=== PATIENT | female | born 1940 | race Caucasian/White ===

== ENCOUNTER 2018-05-15 09:01 | Emergency (ER) | payer OTHER ==
[~2018-05-15] VITALS: Ht 157.5 cm; Wt 61.2 kg
[~2018-05-15 09:01] MED LIST: COUMADIN1 MG PO; INTESTINEX1 CAP PO; LIBRAX CAPSULE1 CA1; LOPRESSOR25 MG PO; OMEPRAZOLE20 MG PO; PROTONIX40 MG PO; PYRIDIUM100 MG PO; SEPTRA DS TABLE1 TAB PO; ZANTAC15 MG/ML PO
== END 2018-05-15 16:47 | disposition home or self-care (01) ==
LOC: ER 09:01
DX: M54.89 Other dorsalgia (principal)

== ENCOUNTER 2018-06-04 09:49 | Emergency (ER) | payer OTHER ==
[~2018-06-04] VITALS: Ht 160 cm; Wt 63.5 kg
[2018-06-04] MEDS ORDERED: TEMAZEPAM7.5 MG (10:22)
== END 2018-06-04 12:37 | disposition home or self-care (01) ==
LOC: ER 09:49
DX: M79.641 Pain in right hand (principal)

== ENCOUNTER 2020-08-31 12:41 | Emergency (ER) | payer OTHER ==
[~2020-08-31] VITALS: Ht 160 cm; Wt 63.5 kg
[~2020-08-31 12:41] MED LIST changes: +TEMAZEPAM7.5 MG
[2020-08-31] MEDS ORDERED: ZOFRAN8 MG PO (16:40)
[2020-08-31] MEDS ORDERED: FLAGYL500MG PO (16:40)
[2020-08-31] MEDS ORDERED: PEPCID AC20 MG PO (16:40)
== END 2020-08-31 23:00 | disposition home or self-care (01) ==
LOC: ER 12:41
DX: K52.89 Other specified noninfective gastroenteritis and colitis (principal); E86.0 Dehydration; S00.83XA Contusion of other part of head, initial encounter; W20.8XXA Other cause of strike by thrown, projected or falling object, initial encounter; Y93.89 Activity, other specified; Y92.89 Other specified places as the place of occurrence of the external cause; Y99.8 Other external cause status

== ENCOUNTER 2020-12-26 14:29 | Emergency (ER) | payer OTHER ==
[~2020-12-26] VITALS: Ht 157.5 cm; Wt 59.0 kg
[~2020-12-26 14:29] MED LIST changes: +FLAGYL500MG PO; +PEPCID AC20 MG PO; +ZOFRAN8 MG PO
[2020-12-26] MEDS ORDERED: ELIQUIS5 MG (14:38)
[2020-12-26] MEDS ORDERED: LEVSIN0.125 MG (14:39)
[2020-12-26] MEDS ORDERED: DIALYVITE 8001 EACH (14:39)
[2020-12-26] MEDS ORDERED: VIT D3 (14:39)
[2020-12-26] MEDS ORDERED: LORAZEPAM0.5 MG (14:39)
[2020-12-26] MEDS ORDERED: LIPITOR20 MG (14:40)
[2020-12-26] MEDS ORDERED: ARICEPT5 MG (14:40)
[2020-12-26] MEDS ORDERED: SERTRALINE HCL25 MG (14:40)
== END 2020-12-26 20:57 | disposition home or self-care (01) ==
LOC: ER 14:29
DX: K52.89 Other specified noninfective gastroenteritis and colitis (principal); R10.13 Epigastric pain

== ENCOUNTER 2021-02-11 13:40 | Emergency (ER) | payer OTHER ==
[~2021-02-11] VITALS: Ht 157.5 cm; Wt 54.4 kg
[~2021-02-11 13:40] MED LIST changes: +ARICEPT5 MG; +DIALYVITE 8001 EACH; +ELIQUIS5 MG; +LEVSIN0.125 MG; +LIPITOR20 MG; +LORAZEPAM0.5 MG; +SERTRALINE HCL25 MG; +VIT D3
[2021-02-11] MEDS ORDERED: INTESTINEX680 M1 PO (17:22)
== END 2021-02-11 17:34 | disposition home or self-care (01) ==
LOC: ER 13:40
DX: K52.89 Other specified noninfective gastroenteritis and colitis (principal); R11.2 Nausea with vomiting, unspecified

== ENCOUNTER → 2021-07-17 | Emergency (ER) | payer OTHER ==
[~2021-07-17] VITALS: Ht 165.1 cm; Wt 61.2 kg
[~2021-07-17] MED LIST changes: +INTESTINEX680 M1 PO
== END | disposition left against medical advice (07) ==
LOC: ER 10:10
DX: Z53.20 Procedure and treatment not carried out because of patient's decision for unspecified reasons (principal)

== ENCOUNTER 2023-06-07 08:55 | Emergency (ER) | payer OTHER ==
[~2023-06-07] VITALS: Ht 160 cm; Wt 63.5 kg
[2023-06-07] MEDS ORDERED: NAMENDA10 MG (09:17)
[2023-06-07] MEDS ORDERED: OMEPRAZOLE20 MG (09:17)
== END 2023-06-07 13:00 | disposition home or self-care (01) ==
LOC: ER 08:55
PROVIDERS: General Practice
DX: R07.9 Chest pain, unspecified (principal); Z91.041 Radiographic dye allergy status; I10 Essential (primary) hypertension; I25.118 Atherosclerotic heart disease of native coronary artery with other forms of angina pectoris; E78.49 Other hyperlipidemia; I48.91 Unspecified atrial fibrillation; E78.00 Pure hypercholesterolemia, unspecified; R55 Syncope and collapse
CPT/HCPCS: 36415; 93005; 96365; 99284; J3490

== ENCOUNTER 2025-01-01 21:21 | Emergency (ER) | payer OTHER ==
[~2025-01-01] VITALS: Ht 162.6 cm; Wt 63.5 kg
[~2025-01-01 21:21] MED LIST changes: +NAMENDA10 MG; +OMEPRAZOLE20 MG
[2025-01-01 23:26] LABS: PH,URINE 5.5 (5.0-8.0); URINE APPEARANCE Clear; URINE BILIRRUBIN Negative (NEGATIVE); URINE BLOOD Negative; URINE COLOR Yellow; URINE GLUCOSE Negative (NEGATIVE); URINE KETONE Trace (NEGATIVE); URINE LEUKOCYTE Small; URINE NITRATE Negative; URINE PROTEIN Trace (NEGATIVE); URINE UROBILINOGEN 0.2 E.U./dl
[2025-01-01 23:30] LABS: HEMATOCRIT 42.6 % (36.0-45.00); HEMOGLOBIN 14.3 g/dL (12.0-15.00); MEAN CELL VOLUME 89.9 fL (80.00-100.00); MEAN CORPUSCULAR HEMOGLOBIN 30.1 pg (27.00-32.0); MEAN CORPUSCULAR HGB CONC 33.5 g/dl (32.0-36.0); PLATELET COUNT 326 K/uL (150-450); RED BLOOD COUNT 4.74 M/uL (4.00-6.00); URINE BACTERIA 138.2 uL (0.0-1933); URINE EPITHELIAL CELLS 16.9 uL (0.0-38.8); URINE RBC 13.2 uL (0.0-20.8); URINE WBC 179.6 uL (0.0-23.2)
[2025-01-01 23:35] LABS: CALCIUM 9.5 mg/dL (8.5-10.1); CREATININE SERUM 1.09 mg/dL (0.55-1.02); GFR 47.71; POTASSIUM 4.01 mEq/L (3.5-5.1)
[2025-01-01 23:45] LABS: URINE CRYSTALS MANY /HPF
[2025-01-02] MEDS ORDERED: CEFTRIAXONE SODIUM 1,000 MG VIAL ONE (02:43)
[2025-01-02 07:44] VITALS: BP 167/85; O2SAT 99
[2025-01-02] MEDS ORDERED: BUDESONIDE 0.25 MG/2 ML AMPUL.NEB IH ONE (09:06)
[2025-01-02] MEDS ORDERED: ALBUTEROL SULFATE 1.25 MG/3 ML AMPUL.NEB IH ONE (09:06)
[2025-01-02] MEDS ORDERED: LIDOCAINE HCL 1% 10ML VIAL ONE (12:47)
[2025-01-02] MEDS ORDERED: BACITRACIN-NEOMYCIN-POLYMYXIN 0.9 GM PACKET TOP ONE (12:59)
== END 2025-01-02 12:42 | disposition home or self-care (01) ==
LOC: ER 21:24
PROVIDERS: General Practice
DX: E86.0 Dehydration (principal); N39.0 Urinary tract infection, site not specified; Z88.8 Allergy status to other drugs, medicaments and biological substances

== ENCOUNTER 2025-01-06 09:53 | Emergency (ER) | payer OTHER ==
[~2025-01-06] VITALS: Ht 160 cm; Wt 59.0 kg
[2025-01-06] MEDS ORDERED: 0.9 % SODIUM CHLORIDE 1,000 ML IV STA (11:25)
[2025-01-06 12:37] LABS: HEMATOCRIT 44.1 % (36.0-45.00); HEMOGLOBIN 14.6 g/dL (12.0-15.00); MEAN CELL VOLUME 90.4 fL (80.00-100.00); MEAN CORPUSCULAR HEMOGLOBIN 29.9 pg (27.00-32.0); MEAN CORPUSCULAR HGB CONC 33.1 g/dl (32.0-36.0); PLATELET COUNT 345 K/uL (150-450); RED BLOOD COUNT 4.88 M/uL (4.00-6.00); RED CELL DISTRIBUTION WIDTH 14.8 % (11.5-14.5)
[2025-01-06 12:53] LABS: INR 1.13; PARTIAL THROMBOPLASTIN TIME 29.3 SECONDS (22.0-34.0); PROTHROMBIN TIME 12.2 SECONDS (9.0-11.5)
[2025-01-06 13:05] LABS: URINE APPEARANCE Clear; URINE BILIRRUBIN Negative (NEGATIVE); URINE BLOOD Trace; URINE COLOR Yellow; URINE GLUCOSE Negative (NEGATIVE); URINE KETONE Trace (NEGATIVE); URINE LEUKOCYTE Trace; URINE NITRATE Negative; URINE PROTEIN Negative (NEGATIVE); URINE UROBILINOGEN 0.2 E.U./dl
[2025-01-06 13:08] LABS: ALBUMIN 3.7 gm/dL (3.4-5.0); BILIRUBIN TOTAL 0.62 mg/dL (0.3-1.2); CALCIUM 9.7 mg/dL (8.5-10.1); CREATININE SERUM 0.99 mg/dL (0.55-1.02); GFR 53.31; GLOBULINA 3.9 G/DL (2.4-3.5); POTASSIUM 3.96 mEq/L (3.5-5.1); TOTAL PROTEIN 7.6 gm/dL (6.4-8.2); TSH 2.09 uIU/mL (0.358-3.74)
[2025-01-06 13:08] LABS: URINE BACTERIA 35.4 uL (0.0-1933); URINE EPITHELIAL CELLS 13.6 uL (0.0-38.8); URINE RBC 31.6 uL (0.0-20.8)
== END 2025-01-06 19:14 | disposition home or self-care (01) ==
LOC: ER 09:54
PROVIDERS: General Practice
DX: E86.0 Dehydration (principal); G30.8 Other Alzheimer's disease; F02.80 Dementia in other diseases classified elsewhere, unspecified severity, without behavioral disturbance, psychotic disturbance, mood disturbance, and anxiety; I10 Essential (primary) hypertension; Z88.8 Allergy status to other drugs, medicaments and biological substances; Z20.822 Contact with and (suspected) exposure to COVID-19

== ENCOUNTER 2025-08-09 10:43 | Emergency (ER) | payer OTHER ==
[~2025-08-09] VITALS: Ht 165.1 cm; Wt 65.8 kg
[2025-08-09] MEDS ORDERED: 0.9 % SODIUM CHLORIDE 1,000 ML IV SCH (12:00)
[2025-08-09] MEDS ORDERED: ONDANSETRON HCL 2 MG/ML VIAL IV ONE (12:00)
[2025-08-09] MEDS ORDERED: ONDANSETRON HCL 2 MG/ML VIAL ONE (12:37)
[2025-08-09 13:19] LABS: BASO % 0.3 % (0.1-1.2); EOS # 0.06 (0.04-0.54); EOS % 0.6 % (0.7-7.0); LYMPH # 1.60 (1.18-3.74); LYMPH % 15.9 % (19.3-53.1); MEAN PLATELET VOLUME 10.30 fl (9.4-12.4); MONO # 0.78 (0.24-0.82); MONO % 7.7 % (4.7-12.5); NEUT # 7.59 (1.56-6.13); NEUT % 75.2 % (34.0-71.1)
[2025-08-09 13:20] LABS: ERYTHROCYTE SEDIMENTATION RATE 38 mm/hr (0-30)
[2025-08-09 13:21] LABS: RED CELL DISTRIBUTION WIDTH 26.5 % (11.6-14.4)
[2025-08-09 13:40] LABS: ALT/SGPT 25.0 U/L (12-78); AST/SGOT 80.0 U/L (15-37); BILIRUBIN TOTAL 0.48 mg/dL (0.3-1.2); BUN CREA RATIO 18.0 (7.0-25.0); CREATININE SERUM 1.15 mg/dL (0.55-1.02); GFR 44.74; GLOBULINA 4.0 G/DL (2.4-3.5); GLUCOSE FASTING 109.0 mg/dL (65-100); OSMOLALITY SERUM 289.0 MOSM/KG (275-295)
[2025-08-09 14:22] LABS: URINE APPEARANCE Cloudy; URINE BILIRRUBIN Small (NEGATIVE); URINE BLOOD Negative; URINE COLOR Dark Yellow; URINE GLUCOSE Negative (NEGATIVE); URINE KETONE 15 (NEGATIVE); URINE LEUKOCYTE Small; URINE NITRATE Negative; URINE PROTEIN 30 (NEGATIVE); URINE UROBILINOGEN 1.0 E.U./dl
[2025-08-09 14:26] LABS: URINE BACTERIA 195.5 uL (0.0-1933); URINE EPITHELIAL CELLS 38.4 uL (0.0-38.8); URINE RBC 47.8 uL (0.0-20.8); URINE WBC 113.5 uL (0.0-23.2)
[2025-08-09 14:46] LABS: COVID-19 AG NEGATIVE (NEGATIVE)
[2025-08-09 14:46] LABS: TYPE CELLS SQUAMOUS; URINE CAST 0.87 uL (0.0-1.40); URINE CRYSTALS FEW /HPF; URINE MUCUS MODERATE
== END 2025-08-10 01:07 | disposition home or self-care (01) ==
LOC: ER 10:43
PROVIDERS: General Practice
DX: N39.0 Urinary tract infection, site not specified (principal); I25.10 Atherosclerotic heart disease of native coronary artery without angina pectoris; E86.0 Dehydration; I49.8 Other specified cardiac arrhythmias; E78.00 Pure hypercholesterolemia, unspecified; I48.91 Unspecified atrial fibrillation; G30.8 Other Alzheimer's disease; F02.80 Dementia in other diseases classified elsewhere, unspecified severity, without behavioral disturbance, psychotic disturbance, mood disturbance, and anxiety; D53.8 Other specified nutritional anemias; Z91.041 Radiographic dye allergy status; Z20.822 Contact with and (suspected) exposure to COVID-19
CPT/HCPCS: 36415; 71045; 76700; 82803; 93005; 96365; 99284; J2405; J7030

== ENCOUNTER 2025-08-22 08:48 | Outpatient (CLI) | payer OTHER | END 2025-08-22 08:52 | disposition home or self-care (01) | LOC: TOM 08:48 | DX: R10.13 Epigastric pain (principal) | CPT/HCPCS: 74178; Q9965 ==

== ENCOUNTER 2025-08-27 10:28 | Inpatient (IN) | payer OTHER ==
[~2025-08-27] VITALS: Ht 157.5 cm; Wt 68.0 kg
[2025-08-27] MEDS ORDERED: RAZADYNE ER16 MG PO (11:20)
[2025-08-27] MEDS ORDERED: ATORVASTATIN CA10 MG PO (11:20)
[2025-08-27] MEDS ORDERED: ZYPREXA20 MG PO (11:21)
--- NOTE | 2025-08-27 11:28 | NUR ---
PACIENTE FEMINA ACOMPANADA POR DIAZ NIETA, SE REFIERE VOMITOS, SE LE GIOVANNI SIGNOS VITALES Y SE UBICA PARA SER EVALUADA.
[2025-08-27] MEDS ORDERED: 0.9 % SODIUM CHLORIDE 1,000 ML IV STA (12:24)
[2025-08-27] MEDS ORDERED: DEXTROSE 50 % IN WATER 0.5 G/ML DISP.SYRIN IV ONE (12:52)
[2025-08-27 12:56] LABS: BASO % 0.2 % (0.1-1.2); EOS # 0.01 (0.04-0.54); EOS % 0.1 % (0.7-7.0); LYMPH # 1.14 (1.18-3.74); LYMPH % 9.5 % (19.3-53.1); MEAN PLATELET VOLUME 9.70 fl (9.4-12.4); MONO # 1.02 (0.24-0.82); MONO % 8.5 % (4.7-12.5); NEUT # 9.73 (1.56-6.13); NEUT % 81.1 % (34.0-71.1)
--- NOTE | 2025-08-27 13:27 | NUR ---
PTE ALERTA,ESTABLE Y ORIENTADA.SE EDUCA SOBRE EL TRATAMIENTO QUE RECIBIRA EN EL HOSPITAL Y ESTA REFIERE ENTENDER
[2025-08-27 13:30] LABS: RED CELL DISTRIBUTION WIDTH 25.9 % (11.6-14.4)
[2025-08-27 13:31] LABS: INR 1.23
[2025-08-27 13:39] LABS: ALT/SGPT 45.0 U/L (12-78); AST/SGOT 111.0 U/L (15-37); BILIRUBIN TOTAL 0.81 mg/dL (0.3-1.2); BUN CREA RATIO 15.0 (7.0-25.0); CREATININE SERUM 1.19 mg/dL (0.55-1.02); GFR 43.01; GLOBULINA 3.6 G/DL (2.4-3.5); GLUCOSE FASTING 98.0 mg/dL (65-100); OSMOLALITY SERUM 283.0 MOSM/KG (275-295)
[2025-08-27 14:47] LABS: URINE APPEARANCE Cloudy; URINE BILIRRUBIN Small (NEGATIVE); URINE BLOOD Negative; URINE COLOR Dark Yellow; URINE GLUCOSE Negative (NEGATIVE); URINE KETONE Trace (NEGATIVE); URINE LEUKOCYTE Small; URINE NITRATE Negative; URINE UROBILINOGEN 1.0 E.U./dl
[2025-08-27 14:50] LABS: URINE BACTERIA 213.5 uL (0.0-1933); URINE EPITHELIAL CELLS 72.6 uL (0.0-38.8); URINE RBC 35.3 uL (0.0-20.8); URINE WBC 179.3 uL (0.0-23.2)
[2025-08-27 15:21] LABS: URINE CAST > 21.83 uL (0.0-1.40); URINE PROTEIN 300 (NEGATIVE)
[2025-08-27] MEDS ORDERED: SODIUM CHLORIDE 0.45 % 1,000 ML IV SCH (18:00)
[2025-08-27] MEDS ORDERED: PIPERACILLIN/TAZOBACTAM SODIUM 2.25 GM in DEXTROSE 5 % IN WATER 50 ML IV SCH (18:47)
[2025-08-27] MEDS ORDERED: FAMOTIDINE/PF 20 MG/2 ML VIAL IV SCH (18:47)
[2025-08-27] MEDS ORDERED: CLOTRIMAZOLE 30 GM TUBE TOP SCH (18:50)
[2025-08-27] MEDS ORDERED: LORazepam 2 MG/ML VIAL IV ONE (19:00)
[2025-08-27] MEDS ORDERED: TEMAZEPAM 15 MG CAPSULE PO PRN (19:15)
[2025-08-27] MEDS ORDERED: ENOXAPARIN SODIUM 40 MG/0.4 ML SYRINGE SUBCUTANEO SCH (19:49)
[2025-08-27 19:52] VITALS: BP 110/70
[2025-08-27] MEDS ORDERED: FAMOTIDINE/PF 20 MG/2 ML VIAL ONE (19:54)
[2025-08-27] MEDS ORDERED: LORazepam 2 MG/ML VIAL ONE (19:54)
[2025-08-27] MEDS ORDERED: BENZONATATE 100 MG CAPSULE PO ONE (21:52)
[2025-08-28] VITALS (8 sets, daily range): BP systolic 113–124; BP diastolic 68–81; O2SAT 87–98
[2025-08-28] MEDS ORDERED: ONDANSETRON HCL 4 MG in DEXTROSE 5 % IN WATER 50 ML IV SCH (01:00)
[2025-08-28] MEDS ORDERED: AMINO ACIDS/PROTEIN HYDROLYS 30 ML BLIST.PACK PO SCH (09:00)
[2025-08-28] MEDS ORDERED: LACTOBACILLUS ACIDOPHILUS 1 CAP CAP PO SCH (09:00)
[2025-08-29] VITALS: BP 118/75; O2SAT 97
[2025-08-29 07:22] LABS: URINE PROT QUANT 24HR 24.1 MG/DL
[2025-08-29 07:24] LABS: URINE PROT QUANT 24 HR 120.5 MG/24HR (42-225)
[2025-08-29 08:00] VITALS: BP 110/75; O2SAT 97
[2025-08-29] MEDS ORDERED: FERROUS SULFATE 325 MG TABLET.EC PO SCH (09:00)
[2025-08-29] MEDS ORDERED: FAMOTIDINE/PF 20 MG/2 ML VIAL IV SCH (09:00)
[2025-08-29] MEDS ORDERED: VITAMIN B COMPLEX/LYSINE 15 ML BLIST.PACK PO SCH (09:00)
[2025-08-29 10:45] LABS: CREATINE CLEARANCE 15.2 ML/MIN (97-137); CREATININE SERUM 1.1 mg/dL (0.6-1.0)
[2025-08-29 13:28] VITALS: O2SAT 96
[2025-08-29 16:21] VITALS: BP 149/80; O2SAT 99
[2025-08-29] MEDS ORDERED: MULTIVIT INFUSN,ADULT 4,VIT K 10 ML VIAL IV SCH (17:00)
[2025-08-30] VITALS: O2SAT 95
[2025-08-30 00:49] VITALS: BP 128/81; O2SAT 98
[2025-08-30 07:58] LABS: ALT/SGPT 44.0 U/L (12-78); AST/SGOT 115.0 U/L (15-37); BILIRUBIN TOTAL 1.0 mg/dL (0.3-1.2); BUN CREA RATIO 16.0 (7.0-25.0); CREATININE SERUM 1.02 mg/dL (0.55-1.02); GFR 51.38; GLOBULINA 2.8 G/DL (2.4-3.5); GLUCOSE FASTING 86.0 mg/dL (65-100); OSMOLALITY SERUM 285.0 MOSM/KG (275-295)
[2025-08-30 08:35] LABS: BASO % 0.3 % (0.1-1.2); EOS # 0.06 (0.04-0.54); EOS % 0.7 % (0.7-7.0); LYMPH # 1.25 (1.18-3.74); LYMPH % 14.2 % (19.3-53.1); MEAN PLATELET VOLUME 10.40 fl (9.4-12.4); MONO # 0.95 (0.24-0.82); MONO % 10.8 % (4.7-12.5); NEUT # 6.47 (1.56-6.13); NEUT % 73.4 % (34.0-71.1)
[2025-08-30 08:55] VITALS: BP 134/85; O2SAT 99
[2025-08-30 10:34] LABS: RED CELL DISTRIBUTION WIDTH 26.1 % (11.6-14.4)
[2025-08-30 17:16] VITALS: BP 172/81; O2SAT 97
[2025-08-30 23:55] VITALS: BP 140/85; O2SAT 97
[2025-08-31 09:10] VITALS: BP 172/80; O2SAT 99
[2025-08-31 16:54] VITALS: BP 121/73; O2SAT 95
[2025-09-01 00:42] VITALS: BP 129/79; O2SAT 98
[2025-09-01 08:00] VITALS: BP 137/76; O2SAT 98
[2025-09-01] MEDS ORDERED: DIPHENHYDRAMINE HCL 50 MG/ML VIAL 1ML IV NR (08:00)
[2025-09-01] MEDS ORDERED: METHYLPREDNISOLONE SOD SUCC 125 MG VIAL IV NR (08:00)
[2025-09-01 09:26] VITALS: O2SAT 94
[2025-09-01 16:22] VITALS: O2SAT 97
[2025-09-01 16:43] VITALS: BP 120/76; O2SAT 94
[2025-09-01 20:06] VITALS: O2SAT 92
[2025-09-02] VITALS (7 sets, daily range): BP systolic 131–156; BP diastolic 70–84; O2SAT 87–99
[2025-09-02 06:37] LABS: ALT/SGPT 40.0 U/L (12-78); AST/SGOT 102.0 U/L (15-37); BILIRUBIN TOTAL 0.52 mg/dL (0.3-1.2); BUN CREA RATIO 14.0 (7.0-25.0); CREATININE SERUM 0.81 mg/dL (0.55-1.02); GFR 67.04; GLOBULINA 2.8 G/DL (2.4-3.5); GLUCOSE FASTING 83.0 mg/dL (65-100); OSMOLALITY SERUM 282.0 MOSM/KG (275-295)
[2025-09-02] MEDS ORDERED: AZITHROMYCIN 500 MG TABLET PO SCH (20:59)
[2025-09-02] MEDS ORDERED: GUAIFENESIN 200 MG/10 ML BLIST.PACK PO SCH (21:00)
[2025-09-03] VITALS (8 sets, daily range): BP systolic 134–151; BP diastolic 74–80; O2SAT 93–98
[2025-09-03 06:19] LABS: BASO % 0.1 % (0.1-1.2); EOS # 0.04 (0.04-0.54); EOS % 0.4 % (0.7-7.0); LYMPH # 1.79 (1.18-3.74); LYMPH % 18.3 % (19.3-53.1); MEAN PLATELET VOLUME 10.20 fl (9.4-12.4); MONO # 0.71 (0.24-0.82); MONO % 7.3 % (4.7-12.5); NEUT # 7.18 (1.56-6.13); NEUT % 73.5 % (34.0-71.1)
[2025-09-03 06:57] LABS: RED CELL DISTRIBUTION WIDTH 26.5 % (11.6-14.4)
[2025-09-03] MEDS ORDERED: ZITHROMAX500 MG PO (14:32)
[2025-09-03] MEDS ORDERED: INFUVITE ADULT10 ML IV (14:32)
[2025-09-03] MEDS ORDERED: INTESTINEX680 M1 PO (14:32)
[2025-09-03] MEDS ORDERED: GERI-TUSSI100 MG/5 M PO (14:32)
[2025-09-03] MEDS ORDERED: FERROUS SULFAT325 M1 PO (14:32)
[2025-09-03] MEDS ORDERED: MEDROL4 MG PO (14:34)
[2025-09-03] MEDS ORDERED: CLOTRIMAZOLE45 G1 TOP (14:35)
[2025-09-03] MEDS ORDERED: NASAL MIST126 ML NASAL (14:38)
[2025-09-03] MEDS ORDERED: XOPENEX HFA15 GM IH (14:38)
== END 2025-09-03 16:30 | disposition home or self-care (01) | DRG 690 ==
LOC: ER 10:28 → SEC-K 19:10 → SURH 19:10 → SEC-K 19:28 → SURH 19:57
PROVIDERS: General Practice; ADMIT Internal Medicine Cardiovascular Disease; ATTEND Internal Medicine Cardiovascular Disease
PROC: B246ZZZ Ultrasonography of Right and Left Heart (ICD-10-PCS; 2025-08-28)
PROC: 4A12X4Z Monitoring of Cardiac Electrical Activity, External Approach (ICD-10-PCS; 2025-08-28)
PROC: BT4JZZZ Ultrasonography of Kidneys and Bladder (ICD-10-PCS; principal; 2025-08-30)
PROC: BW3GY0Z Magnetic Resonance Imaging (MRI) of Pelvic Region using Other Contrast, Unenhanced and Enhanced (ICD-10-PCS; 2025-08-31)
DX: N39.0 Urinary tract infection, site not specified (principal); C78.7 Secondary malignant neoplasm of liver and intrahepatic bile duct; C78.89 Secondary malignant neoplasm of other digestive organs; G30.9 Alzheimer's disease, unspecified; F02.80 Dementia in other diseases classified elsewhere, unspecified severity, without behavioral disturbance, psychotic disturbance, mood disturbance, and anxiety; E86.0 Dehydration; R97.1 Elevated cancer antigen 125 [CA 125]; R97.0 Elevated carcinoembryonic antigen [CEA]; N83.292 Other ovarian cyst, left side
CPT/HCPCS: 72198

== ENCOUNTER 2025-09-15 17:08 | Emergency (ER) | payer OTHER ==
[~2025-09-15] VITALS: Ht 160 cm; Wt 68.0 kg
[~2025-09-15 17:08] MED LIST changes: +ATORVASTATIN CA10 MG PO; +CLOTRIMAZOLE45 G1 TOP; +FERROUS SULFAT325 M1 PO; +GERI-TUSSI100 MG/5 M PO; +INFUVITE ADULT10 ML IV; +MEDROL4 MG PO; +NASAL MIST126 ML NASAL; +RAZADYNE ER16 MG PO; +XOPENEX HFA15 GM IH; +ZITHROMAX500 MG PO; +ZYPREXA20 MG PO
[2025-09-15] MEDS ORDERED: RINGERS SOLUTION,LACTATED 1,000 ML IV ONE (18:30)
[2025-09-15] MEDS ORDERED: ONDANSETRON HCL 4 MG in 0.9 % SODIUM CHLORIDE 50 ML IV ONE (18:30)
[2025-09-15] MEDS ORDERED: FAMOTIDINE/PF 20 MG in 0.9 % SODIUM CHLORIDE 8 ML IV PUSH ONE (18:30)
[2025-09-15] MEDS ORDERED: ONDANSETRON HCL 2 MG/ML VIAL ONE (20:20)
[2025-09-15] MEDS ORDERED: FAMOTIDINE/PF 20 MG/2 ML VIAL ONE (20:21)
[2025-09-15 20:32] LABS: BASO % 0.2 % (0.1-1.2); EOS # 0.01 (0.04-0.54); EOS % 0.1 % (0.7-7.0); LYMPH # 1.62 (1.18-3.74); LYMPH % 15.6 % (19.3-53.1); MEAN PLATELET VOLUME 9.70 fl (9.4-12.4); MONO # 1.10 (0.24-0.82); MONO % 10.6 % (4.7-12.5); NEUT # 7.60 (1.56-6.13); NEUT % 73.0 % (34.0-71.1)
[2025-09-15 20:33] LABS: RED CELL DISTRIBUTION WIDTH 25.2 % (11.6-14.4)
[2025-09-15 20:53] LABS: INR 1.23
[2025-09-15 21:06] LABS: ALT/SGPT 56.0 U/L (12-78); AST/SGOT 241.0 U/L (15-37); BILIRUBIN TOTAL 2.13 mg/dL (0.3-1.2); BUN CREA RATIO 17.0 (7.0-25.0); CREATININE SERUM 1.03 mg/dL (0.55-1.02); GFR 50.81; GLOBULINA 3.2 G/DL (2.4-3.5); GLUCOSE FASTING 98.0 mg/dL (65-100); OSMOLALITY SERUM 283.0 MOSM/KG (275-295)
[2025-09-15] MEDS ORDERED: CEFTRIAXONE SODIUM 2,000 MG in 0.9 % SODIUM CHLORIDE 100 ML IV ONE (23:45)
[2025-09-15] MEDS ORDERED: MULTIVIT INFUSN,ADULT 4,VIT K 10 ML VIAL IV ONE (23:45)
[2025-09-16] MEDS ORDERED: CEFTRIAXONE SODIUM 2,000 MG VIAL ONE (03:56)
== END 2025-09-16 15:12 | disposition other institution (70) ==
LOC: ER 17:09
PROVIDERS: General Practice
DX: R05.8 Other specified cough (principal); D64.89 Other specified anemias; C80.1 Malignant (primary) neoplasm, unspecified; C79.89 Secondary malignant neoplasm of other specified sites; Z91.041 Radiographic dye allergy status; I10 Essential (primary) hypertension; E78.49 Other hyperlipidemia; R63.0 Anorexia
CPT/HCPCS: 36415; 71045; 74176; 82803; 96365; 99284; J0696; J2405; J3490